=== PATIENT | male | born 1935 | race Caucasian/White ===

== ENCOUNTER → 2018-09-29 | Outpatient (CLI) | payer MEDICARE ==
[~2018-09-29] MED LIST: ACYC800 PO; ALBU90OI INH; ALEN35 PO; ALEN70; ASCO500 PO; ASPI81EC; AZIT250 PO; BENZ100A PO; CALCAVITDA; CLOP75 PO; HYDACE5 PO; NAPR500 PO; RISE35; SIMV10 PO; TRAM50 PO; Ventolin/Prove6.7 GM INH; Zithromax250 MG PO
== END | disposition home or self-care (01) ==
LOC: LAB SHORT 12:00 → PLD 12:00
DX: B35.1 Tinea unguium (principal); L60.2 Onychogryphosis
CPT/HCPCS: 88304; 88312

== ENCOUNTER → 2020-08-29 | Outpatient (CLI) | payer MEDICARE | LOC: LAB SHORT 16:44 | DX: R21 Rash and other nonspecific skin eruption (principal); D22.62 Melanocytic nevi of left upper limb, including shoulder; D22.5 Melanocytic nevi of trunk; D48.5 Neoplasm of uncertain behavior of skin; L29.8 Other pruritus; L81.4 Other melanin hyperpigmentation; Z71.89 Other specified counseling | CPT/HCPCS: 87070; 87077; 87186; 87205 ==

== ENCOUNTER → 2020-09-19 | Outpatient (CLI) | payer MEDICARE | LOC: LAB SHORT 19:15 → LAB 19:15 | DX: C44.42 Squamous cell carcinoma of skin of scalp and neck (principal); B95.61 Methicillin susceptible Staphylococcus aureus infection as the cause of diseases classified elsewhere; R21 Rash and other nonspecific skin eruption | CPT/HCPCS: 87070; 87077; 87186; 87205 ==

== ENCOUNTER → 2020-10-03 | Outpatient (CLI) | payer MEDICARE | LOC: LAB 19:13 → LAB SHORT 19:13 | DX: D22.5 Melanocytic nevi of trunk (principal); B95.61 Methicillin susceptible Staphylococcus aureus infection as the cause of diseases classified elsewhere; R21 Rash and other nonspecific skin eruption; L81.4 Other melanin hyperpigmentation; L57.8 Other skin changes due to chronic exposure to nonionizing radiation; Z71.89 Other specified counseling | CPT/HCPCS: 87070; 87205 ==

== ENCOUNTER 2021-06-05 20:01 | Emergency (ER) | payer MEDICARE ==
[~2021-06-05] VITALS: Ht 182.9 cm; Wt 99.3 kg
[2021-06-05] MEDS ORDERED: Percocet 5-3251 EACH PO (22:43)
[2021-06-05] MEDS ORDERED: ONDA4ODT MM (22:43)
== END 2021-06-05 23:09 | disposition home or self-care (01) ==
LOC: ER 20:01
DX: S42.291A Other displaced fracture of upper end of right humerus, initial encounter for closed fracture (principal); W01.0XXA Fall on same level from slipping, tripping and stumbling without subsequent striking against object, initial encounter
CPT/HCPCS: 70450; 73030; 96374; 96375; 99284-25; A9270; J2270; J2405

== ENCOUNTER 2021-07-03 15:59 | Emergency (ER) | payer MEDICARE ==
[~2021-07-03] VITALS: Ht 182.9 cm; Wt 113.4 kg
[~2021-07-03 15:59] MED LIST changes: +ONDA4ODT MM; +Percocet 5-3251 EACH PO
[2021-07-03 17:32] LABS: Albumin, Blood 3.1 g/dL (3.4-5.0); Albumin/Globulin Ratio 0.8 (0.8-1.8); Bilirubin, Total 0.4 mg/dL (0.1-1.0); Bun/Creatinine Ratio 14.1 (12.0-20.0); Creatinine, Blood 1.42 mg/dL (0.60-1.20); Globulin, Blood 4.1 g/dL (2.2-4.0); Potassium, Blood 3.6 mmol/L (3.5-5.5); Total Protein, Blood 7.2 g/dL (6.4-8.2)
[2021-07-03 17:40] LABS: BASOPHILS ABSOLUTE AUTO 0.03 K/mm3 (0.00-0.23); BASOPHILS PERCENT AUTO 1 % (0-2); EOSINOPHILS PERCENT AUTO 5 % (0-6); Hemoglobin 12.4 g/dL (13.5-17.5); IMMATURE GRAN ABSOLUTE AUTO 0.04 K/mm3 (0.00-0.10); IMMATURE GRAN PERCENT AUTO 1 % (0-1); LYMPHOCYTES ABSOLUTE AUTO 1.09 K/mm3 (0.84-5.20); LYMPHOCYTES PERCENT AUTO 16 % (21-46); MONOCYTES ABSOLUTE AUTO 0.52 K/mm3 (0.16-1.47); MONOCYTES PERCENT AUTO 8 % (4-13); Mean Corpuscular HGB 30.3 pg (26.0-34.0); Mean Corpuscular HGB Conc 31.8 g/dL (31.5-36.5); Mean Corpuscular Volume 95 fL (80-100); Mean Platelet Volume 10.3 fL (9.1-12.4); NEUTROPHILS ABSOLUTE AUTO 4.68 K/mm3 (1.96-9.15); NEUTROPHILS PERCENT AUTO 70 % (41-73); Platelet Count 228 K/mm3 (150-400); RDW Coefficient Variation 12.7 % (11.7-14.2); RDW Standard Deviation 44.3 fL (35.1-46.3); Red Blood Cell Count 4.09 M/mm3 (4.30-5.90); White Blood Cell Count 6.66 K/mm3 (4.00-11.30)
[2021-07-03] MEDS ORDERED: LISINOPRIL2.5 MG PO (18:34)
[2021-07-03 20:46] LABS: Influenza A, PCR NEGATIVE (NEGATIVE); Influenza B, PCR NEGATIVE (NEGATIVE); Resp Syncytial Virus, PCR NEGATIVE (NEGATIVE)
[2021-07-03 20:47] LABS: SARS-Cov-2 (COVID-19) PCR, MMC POSITIVE (NEGATIVE)
[2021-07-03] MEDS ORDERED: XARELTO1 EAC1 PO (21:32)
== END 2021-07-03 21:43 | disposition home or self-care (01) ==
LOC: ER 15:59
PROVIDERS: Physician Assistant; Student in an Organized Health Care Education/Training Program
DX: U07.1 COVID-19 (principal); I82.621 Acute embolism and thrombosis of deep veins of right upper extremity; Z86.73 Personal history of transient ischemic attack (TIA), and cerebral infarction without residual deficits; Z85.46 Personal history of malignant neoplasm of prostate; Z79.899 Other long term (current) drug therapy; Z79.01 Long term (current) use of anticoagulants
CPT/HCPCS: 0241U; 36415; 71260; 80053; 83880; 84484; 85025; 93005; 93010; 99284-25; A9270; Q9967